=== PATIENT | male | born 1945 | race Caucasian/White ===

== ENCOUNTER → 2019-02-14 | Outpatient (CLI) | payer MEDICARE, BC ==
--- NOTE | 2019-02-17 17:14 | RADRPT ---
Vent Rate: 64 bpm RR Interval: 932 msec MN Interval: 335 msec QRS Duration: 104 msec QT Interval: 434 msec QTC Interval: 450 msec P-R-T [place]: -3 - 51 - 71 degrees Sinus rhythm...normal P axis, V-rate 50- 99 Prolonged MN interval...MN >220, V-rate 50- 90 Probable lateral infarct, old...Q>35mS, abnormal ST-T, V5-6 I aVL Electronically Signed By: Juan Diego Urbano
== END | disposition home or self-care (01) ==
LOC: EKG 10:21
PROVIDERS: ATTEND Internal Medicine
DX: E66.9 Obesity, unspecified (principal); E03.9 Hypothyroidism, unspecified; R07.9 Chest pain, unspecified
CPT/HCPCS: 93005